=== PATIENT | female | born 1995 | race Asian ===

== ENCOUNTER 2017-03-23 11:57 | Emergency (ER) | payer SELFPAY ==
[~2017-03-23] VITALS: Ht 170.2 cm; Wt 68.0 kg
[2017-03-23 12:29] VITALS: BP 130/80
== END 2017-03-23 14:26 | disposition left against medical advice (07) ==
LOC: ER 11:57
DX: Z53.21 Procedure and treatment not carried out due to patient leaving prior to being seen by health care provider (principal)